=== PATIENT | male | born 2000 | race Caucasian/White ===

== ENCOUNTER 2024-03-04 11:44 | Emergency (ER) | payer SELFPAY ==
[~2024-03-04] VITALS: Ht 172.7 cm; Wt 76.0 kg
[2024-03-04 11:52] VITALS: O2SAT 100
[2024-03-04 11:53] VITALS: TEMP 98.2; O2SAT 98
[2024-03-04 12:57] VITALS: BP 126/81; PULSE 88; RESP 18
[2024-03-04] MEDS: IBUPROFEN 600MG TABLET PO ONE (12:57)
== END 2024-03-04 13:30 | disposition home or self-care (01) ==
LOC: ER 11:44
DX: B34.9 Viral infection, unspecified (principal); Z20.822 Contact with and (suspected) exposure to COVID-19
CPT/HCPCS: 71045; 87426; 87804; 99284